=== PATIENT | female | born 1950 | race Caucasian/White ===

== ENCOUNTER 2019-08-29 10:41 | Day surgery (SDC) | payer MEDICARE, BC ==
[2019-08-27 16:00] VITALS: BMI 30.7
[~2019-08-29 10:41] MED LIST: LACTATED RINGERS 1,000 ML IV SCH
[2019-08-29 11:39] VITALS: TEMP 97.9
[2019-08-29] MEDS ORDERED: PROPOFOL 10 MG/ML 20 ML VIAL IV ONE (12:19)
--- NOTE | 2019-08-29 13:07 | P.PCN ---
Date of Procedure: 08/29/19 Procedure(s) Performed: BRIEF HISTORY: Patient is a 69-year-old pleasant male scheduled for an elective colonoscopy as a part of evaluation of positive cologuard PROCEDURE PERFORMED: Colonoscopy with snare polypectomy PREOPERATIVE DIAGNOSIS: Positive cologuard. IV sedation per Anesthesia. PROCEDURE: After informed consent was obtained, the patient, was brought into the endoscopy unit. IV sedation was administered by Anesthesia under continuous monitoring. Digital rectal examination was normal. Initially the Olympus CF-160 flexible video colonoscope was then inserted in the rectum, gradually advanced into the cecum without any difficulty. Careful examination was performed as the scope was gradually being withdrawn. Ileocecal valve and the appendiceal orifice were visualized and appeared normal. Prep was excellent. Mucosa of the cecum, appeared normal. In the ascending colon there was a 1 cm broad-based polyp removed by snare polypectomy. In the transverse colon there was a 5 mm polyp removed by snare polypectomy. Rest of the ascending colon, transverse colon, descending colon, sigmoid colon, and rectum appeared normal. Scattered sigmoid diverticulosis seen Retroflexion was performed in the rectum and no lesions were seen. The patient tolerated the procedure well. IMPRESSION: 1 cm ascending colon polyp status post polypectomy 5 mm transverse colon polyp status post polypectomy Scattered sigmoid diverticulosis RECOMMENDATIONS: Findings of this examination were discussed with the patient as well as a family. She was advised to follow with the biopsy results. If the biopsy shows an adenoma she can have a repeat colonoscopy in 3 years.
[2019-08-29 13:18] VITALS: BP 164/92; PULSE 74; RESP 20
== END 2019-08-29 13:26 | disposition home or self-care (01) ==
LOC: ORWHC2ENDO 10:41
PROVIDERS: ATTEND Internal Medicine Gastroenterology
DX: D12.2 Benign neoplasm of ascending colon (principal); D12.3 Benign neoplasm of transverse colon; K57.30 Diverticulosis of large intestine without perforation or abscess without bleeding; E78.5 Hyperlipidemia, unspecified; Z88.0 Allergy status to penicillin; Z79.899 Other long term (current) drug therapy; Z79.82 Long term (current) use of aspirin
CPT/HCPCS: 88305; 45385; J2704

== ENCOUNTER → 2020-10-29 | Outpatient (CLI) | payer MEDICARE ==
--- NOTE | 2020-10-29 11:06 | US ---
EXAMINATION TYPE: US thyroid st tissue head/neck DATE OF EXAM: 10/29/2020 COMPARISON: NONE CLINICAL HISTORY: E04.1 Thyroid Nodule. left sided nodule seen on MRI, not done here, not on thyroid meds GLAND SIZE: Right Lobe: 5.1 x 1.1 x 2.2 cm Overall Parenchyma: homogenous Left Lobe: 5.3 x 1.5 x 1.8 cm Overall Parenchyma: heterogeneous Isthmus Thickness: 0.3 cm NODULES RIGHT: # of nodules measured on right: 0 LEFT: # of nodules measured on left: 1 1. 2.2 X 1.3 x 1.6 cm solid or almost completely solid, hyperechoic nodule, which is taller than wi de, with smooth margins, without echogenic foci. Prior size: no previous ISTHMUS: # of nodules measured in the isthmus: 0 Bilateral neck scanned, no evidence of lymphadenopathy. IMPRESSION: 1. Moderately suspicious nodule. Biopsy is recommended. 2017 ACR TI-RADS LEVEL: 4 *Highest TI-RADS level nodule reported
== END | disposition home or self-care (01) ==
LOC: RADUSWWP 10:12
PROVIDERS: ATTEND Family Medicine
DX: E04.1 Nontoxic single thyroid nodule (principal)
CPT/HCPCS: 76536

== ENCOUNTER 2020-11-19 12:08 | Day surgery (SDC) | payer MEDICARE ==
[2020-11-19 12:47] VITALS: TEMP 97.7
--- NOTE | 2020-11-19 14:00 | US ---
ULTRASOUND GUIDED FNA THYROID BIOPSY: CLINICAL HISTORY: Left thyroid nodule FINDINGS: The procedure was explained to the patient. The risks, complications, benefits and alternatives were discussed and any questions were answered. Informed consent was obtained. Patient was placed supin e on the ultrasound table and prepped and draped in the usual sterile fashion. Utilizing a 25 gauge needle, five passes were made into the requested left thyroid nodule. Patient was stable throughout the procedure. Pathology is pending. All elements of maximal barrier technique were utilized. IMPRESSION: 1. Successful ultrasound guided FNA thyroid biopsy.
[2020-11-19 14:08] VITALS: BP 152/84; PULSE 85; RESP 16
== END 2020-11-19 14:00 | disposition home or self-care (01) ==
LOC: RADPROMAIN 12:08
PROVIDERS: ATTEND Family Medicine
DX: E04.1 Nontoxic single thyroid nodule (principal); C44.91 Basal cell carcinoma of skin, unspecified
CPT/HCPCS: 10005; 88173; 88305

== ENCOUNTER → 2021-10-06 | Outpatient (CLI) | payer MEDICARE ==
--- NOTE | 2021-10-07 14:28 | MM ---
Reason for exam: screening (asymptomatic). Last mammogram was performed 2 years and 4 months ago. History: Patient is postmenopausal. Benign excisional biopsy of both breasts, 1980. Physical Findings: A clinical breast exam by your physician is recommended on an annual basis and results should be correlated with mammographic findings. MG 3D Screening Mammo W/Cad Bilateral CC and MLO view(s) were taken. Prior study comparison: June 21, 2019, mammogram. There are scattered fibroglandular densities. No significant changes when compared with prior studies. ASSESSMENT: Benign, BI-RAD 2 RECOMMENDATION: Routine screening mammogram of both breasts in 1 year.
== END | disposition home or self-care (01) ==
LOC: RADMAMWWP 09:41
PROVIDERS: ATTEND Family Medicine
DX: Z12.31 Encounter for screening mammogram for malignant neoplasm of breast (principal); Z78.0 Asymptomatic menopausal state
CPT/HCPCS: 77063; 77067

== ENCOUNTER → 2023-02-02 | Outpatient (CLI) | payer MEDICARE ==
--- NOTE | 2023-02-02 17:13 | BD ---
EXAMINATION TYPE: Axial Bone Density DATE OF EXAM: 02/02/2023 CLINICAL HISTORY: 72 years old Female. ICD-10 CODE: Z78.0 MENOPAUSAL STATE Height: 63 Weight: 158 FRAX RISK QUESTIONS: History of Fracture in Adulthood: yes Secondary Osteoporosis: yes 3. Menopause before 45: yes, at 41 Current Tobacco Use: quit 1998 RISK FACTORS HISTORY OF: hx of femur fx at 58 yrs old, surgically repaired, kendra and pinning hx of broken toes, as an adult Surgery rt hip and femur, kendra and pinning at 58 yrs old Postmenopausal woman: yes, at 41 yrs old, naturally Take estrogen and/or progesterone medications: yes, in the past for about 1 yr Lost more than 2 inches in height since high school: yes Hyperparathyroidism: no Adrenal Insufficiency: no MEDICATIONS: Prednisone or other steroids: into joints only Additional Medications: bp meds, reflux meds, statin for cholesterol, vit d and calcium, nausea and d iarrhea meds, lbl meds, aspirin, Additional History: hypertension, ibs, rt femoral rodding and pinning, cholesterol, reflux, cholester ol, EXAM MEASUREMENTS: Bone mineral densitometry was performed using the [employer] System. Bone mineral density as measured about the Lumbar spine is: ----- L1-L4(G/cm2): 1.363 T Score Values are as follows: ----- L1: 1.4 ----- L2: 1.6 ----- L3: 1.1 ----- L4: 1.9 ----- L1-L4: 1.5 Z Score Values are as follows: ----- L1: 2.9 ----- L2: 3.1 ----- L3: 2.6 ----- L4: 3.4 ----- L1-L4: 3.0 Bone mineral density has: Increased 6.5% since study of: 05.14.2009 Bone mineral density about the L hip (g/cm2): 1.080 T Score values are as follows: -----L Neck: -0.8 -----L Total: 0.6 Z Score values are as follows: -----L Neck: 0.9 -----L Total: 2.1 Bone mineral density has: Increased 6.7% since study of: 05.14.2009 FRAX%s: The graph provided illustrates a 13.9% chance for a major osteoporotic fx and a 1.5% chance f or the hips probability for fx in 10 years time. IMPRESSION: Normal (Values between +1 and -1 indicate normal bone mass). Consider repeating this study in 5 year s or sooner if there is some new clinical indication. NOTE: T-SCORE=SD OF THE YOUNG ADULT MEAN.
--- NOTE | 2023-02-03 08:13 | MM ---
Reason for Exam: Screening (asymptomatic). Last mammogram was performed 1 year(s) and 4 month(s) ago. Patient History: Menarche at age 11. First Full-Term at age 18. Postmenopausal. Estrogen for 1 year from age 44 until age 45. 1981, Bilateral Benign Excisional Biopsy. Paternal grandmother had breast cancer. Risk Values: Sydni 5 year model risk: 1.5%. NCI Lifetime model risk: 3.7%. Prior Study Comparison: 06/21/2019 Screening Mammogram, Unknown. 10/06/2021 Bilateral Screening Mammogram, [facility]. Tissue Density: There are scattered fibroglandular densities. Findings: Analyzed By CAD. There is no suspicious group of microcalcifications or new suspicious mass in either breast. Benign round appearing calcifications within both breasts. Overall Assessment: Benign, BI-RAD 2 Management: Screening Mammogram of both breasts in 1 year. A clinical breast exam by your physician is recommended on an annual basis and results should be correlated with mammographic findings. Electronically signed and approved by: Candelario Alvarez D.O.
== END | disposition home or self-care (01) ==
LOC: RADMAMWWP 09:27
PROVIDERS: ATTEND Family Medicine
DX: Z12.31 Encounter for screening mammogram for malignant neoplasm of breast (principal); I10 Essential (primary) hypertension; Z78.0 Asymptomatic menopausal state; Z80.3 Family history of malignant neoplasm of breast
CPT/HCPCS: 77067; 77080

== ENCOUNTER 2023-04-08 05:22 | Observation (INO) | payer MEDICARE ==
[2023-04-08 06:08] LABS: Basophils % (A) 0 %; Eosinophils # (A) 0.1 k/uL (0-0.7); Eosinophils % (A) 1 %; HCT 44.1 % (34.0-46.0); HGB 14.6 gm/dL (11.4-16.0); Lymphocytes # (A) 1.9 k/uL (1.0-4.8); Lymphocytes % (A) 25 %; MCH 28.4 pg (25.0-35.0); MCHC 33.2 g/dL (31.0-37.0); MCV 85.4 fL (80.0-100.0); Mean Platelet Volume 8.7; Monocytes # (A) 0.4 k/uL (0-1.0); Monocytes % (A) 5 %; Neutrophils # (A) 5.2 k/uL (1.3-7.7); Neutrophils % (A) 67 %; Platelet Count 214 k/uL (150-450); RBC 5.16 m/uL (3.80-5.40); RDW 12.9 % (11.5-15.5); WBC 7.7 k/uL (3.8-10.6)
--- NOTE | 2023-04-08 06:20 | ED ---
Chest Pain HPI - General Chief Complaint: Chest Pain Stated Complaint: Chest pain Time Seen by Provider: 04/08/23 06:02 Source: patient, RN notes reviewed Mode of arrival: ambulatory Limitations: no limitations - History of Present Illness Initial Comments: Patient is a 72-year-old female presenting to the emergency room with complaints of lower centralized pressure-like chest pain that began approximately 1 hour prior to arrival with radiation through to her back. She reports that the pain has improved slightly since initially waking with the pain. She denies any associated symptoms including any shortness of breath, abdominal pain, nausea, vomiting, diaphoresis, orthopnea, headache, dizziness, fevers or chills. She does report a flare of her irritable bowel syndrome with an episode of severe cramping and nausea last night which has resolved. She denies any episodes of vomiting during her IBS flare. In addition to her irritab le bowel syndrome she has past medical history significant for GERD, hyper lipidemia, hypertension, thyroid nodule and osteoarthritis. - Related Data Home Medications Medication Instructions Recorded Confirmed Acetaminophen [Tylenol Arthritis] 650 mg PO Q4-6H 08/27/19 11/19/20 Aspirin [Adult Low Dose Aspirin EC] 162 mg PO DAILY 08/27/19 11/19/20 Cranberry Fruit Extract [Cranberry] 200 mg PO DAILY PRN 08/27/19 11/19/20 Digest Assure 1 tab PO DAILY 08/27/19 11/19/20 Hyoscyamine Sulfate [Levsin] 0.125 mg PO BID 08/27/19 11/19/20 L.acidoph,Paracasei, B.lactis 1 each PO DAILY 08/27/19 11/19/20 [Probiotic] Simvastatin [Zocor] 20 mg PO HS 08/27/19 11/19/20 amLODIPine BESYLATE 5 mg PO BID 08/27/19 11/19/20 Acetaminophen-Codeine 300-30mg 1 - 2 tab PO Q4-6H PRN 11/06/20 11/19/20 [Tylenol w/codeine #3] Cyanocobalamin [Vitamin B-12] 500 mcg PO DAILY 11/06/20 11/19/20 Non Formulary Drug 1 tab PO DAILY 11/06/20 11/19/20 Psyllium Husk (with Sugar) 1 dose PO DAILY 11/06/20 11/19/20 [Metamucil Powder] Ubidecarenone [Co Q-10] 200 mg PO DAILY 11/06/20 11/19/20 hydroCHLOROthiazide [Hydrodiuril] 25 mg PO DAILY 11/06/20 11/19/20 Naproxen 500 mg PO BID 11/19/20 11/19/20 Allergies Allergy/AdvReac Type Severity Reaction Status Date / Time Penicillins Allergy Rash/Hives Verified 04/08/23 05:26 Review of Systems ROS Statement: Those systems with pertinent positive or pertinent negative responses have been documented in the HPI. ROS Other: All systems not noted in ROS Statement are negative. Past Medical History Past Medical History: Cancer, GERD/Reflux, Hearing Disorder / Deafness, Hyperlipidemia, Hypertension, Osteoarthritis (OA) Additional Past Medical History / Comment(s): IBS. positive Cologuard, skin cancer basal cell on outside of nose, left thyroid nodule History of Any Multi-Drug Resistant Organisms: None Reported Past Surgical History: Breast Surgery, Orthopedic Surgery, Tonsillectomy Additional Past Surgical History / Comment(s): Fallopian tubes removed, bilateral breast lumpectomies for cysts, rectocele repair, broken right femur with surgery and kendra in place, colonoscopy, bilateral cataract removal, skin cancer removed from nose, fatty tumour removed from back Additional Past Anesthesia/Blood Transfusion Reaction / Comment(s): Slow to wake up a few times. Past Psychological History: No Psychological Hx Reported Smoking Status: Former smoker Past Alcohol Use History: Rare Past Drug Use History: None Reported - Past Family History Mother Family Medical History: No Reported History Father Family Medical History: Cancer Additional Family Medical History / Comment(s): Lung cancer. General Exam Limitations: no limitations General appearance: alert, in no apparent distress Head exam: Present: atraumatic, normocephalic, normal inspection Eye exam: Present: normal appearance, PERRL, EOMI. Absent: scleral icterus, conjunctival injection, periorbital swelling ENT exam: Present: normal exam, mucous membranes moist Neck exam: Present: normal inspection, full ROM Respiratory exam: Present: normal lung sounds bilaterally. Absent: respiratory distress, wheezes, rales, rhonchi, stridor, chest wall tenderness Cardiovascular Exam: Present: regular rate, normal rhythm, normal heart sounds. Absent: systolic murmur, diastolic murmur, rubs, gallop, clicks GI/Abdominal exam: Present: soft, normal bowel sounds. Absent: distended, tenderness, guarding, rebound, rigid Rectal exam: Present: deferred Extremities exam: Present: normal inspection, full ROM. Absent: pedal edema, joint swelling Back exam: Present: normal inspection Neurological exam: Present: alert, oriented X3, CN II-XII intact Psychiatric exam: Present: normal affect, normal mood Skin exam: Present: warm, dry, intact, normal color. Absent: rash Course Vital Signs 04/08/23 05:26 Temperature 98.1 F Pulse Rate 102 H Respiratory 18 Rate Blood Pressure 159/92 O2 Sat by Pulse 98 Oximetry Chest Pain MDM - MDM Was pt. sent in by a medical professional or institution (, PA, ANALYTICAL LAB ANALYST, urgent care, hospital, or retirement...) When possible be specific @ -No Did you speak to anyone other than the patient for history (EMS, parent, family, police, friend...)? What history was obtained from this source @ -No Did you review nursing and triage notes (agree or disagree)? Why? @ -I reviewed and agree with nursing and triage notes Were old charts reviewed (outside hosp., previous admission, EMS record, old EKG , old radiological studies, urgent care reports/EKG's, retirement records)? Report findings @ -No old charts were reviewed Differential Diagnosis (chest pain, altered mental status, abdominal pain women, abdominal pain men, vaginal bleeding, weakness, fever, dyspnea, syncope, headache, dizziness, GI bleed, back pain, seizure, CVA, palpatations, mental health, musculoskeletal)? @ -Differential Chest Pain: Stable Angina, Unstable Angina, STEMI, NSTEMI, Aortic Dissection, Pneumothorax, Musculoskeletal, Esophageal Spasm GERD, Cholecystitis, Pancreatitis, Zoster, this is not meant to be an all-inclusive list. EKG interpreted by me (3pts min.). @ -Sinus rhythm, ventricular rate 71 bpm, OH interval 159 ms, QRS duration 85 ms, QT/QTC 357/380 ms, PRT axes 63, 60, 65 X-rays interpreted by me (1pt min.). @ -Chest x-ray two-view: Hyperinflation. No consolidation or infiltration. No acute cardiopulmonary process. CT interpreted by me (1pt min.). @ -None done U/S interpreted by me (1pt. min.). @ -None done What testing was considered but not performed or refused? (CT, X-rays, U/S, labs)? Why? @ -None What meds were considered but not given or refused? Why? @ -Analgesics offered but declined. Did you discuss the management of the patient with other professionals (prof dubois i.e. , PA, ANALYTICAL LAB ANALYST, lab, RT, psych nurse, rn social services, grey stock recorder, teacher, uniform patrol police officer, family service caseworker)? Give summary @ -Yes, spoke with Dr. Wilson information technology analyst for [facility] regarding patient's presentation and risk factors recommending observation stay for further monitoring. She is accepting of admission and advised cardiac consult. Was smoking cessation discussed for >3mins.? @ -No Was critical care preformed (if so, how long)? @ -No Were there social determinants of health that impacted care today? How? (Homelessness, low income, unemployed, alcoholism, drug addiction, transportation, low edu. Level, literacy, decrease access to med. care, halfway, rehab)? @ -No Was there de-escalation of care discussed even if they declined (Discuss DNR or withdrawal of care, Hospice)? DNR status @ -No What co-morbidities impacted this encounter? (DM, HTN, Smoking, COPD, CAD, Cancer, CVA, ARF, Chemo, Hep., AIDS, mental health diagnosis, sleep apnea, morbid obesity)? @ -None Was patient admitted / discharged? Hospital course, mention meds given and route, prescriptions, significant lab abnormalities, going to OR and other pertinent info. @ -72-year-old presenting to the emergency room with complaints of pressure-like chest pain ongoing for approximately 1 hour prior to her arrival to the emergency room through her back. Pain has improved without intervention since initial initiation of pain. No associated symptoms. Will start workup for chest pain with EKG, CBC, CMP, coags, troponin, magnesium, amylase, lipase and chest x-ray. Will give 324 aspirin. Pain is continuing to subsided without intervention or associated symptoms. Laboratory results reveal normal CBC. Call back stable, PTT low at 20.7 CMP reveals slightly elevated BUN at 19 with normal creatinine. Glucose elevated 109. Alkaline phosphatase less than 20. Electrolytes including potassium and magnesium normal. Amylase and lipase normal. Troponin 0.017. EKG shows sinus rhythm. Chest x-ray demonstrates hyperinflation without any acute cardiopulmonary process. Findings discussed with patient and daughter at bedside. Advised due to risk factors including age, hypertension and hyperlipidemia history recommend observation for continued monitoring of chest pain and laboratory studies. Patient and daughter are agreeable to this plan. Spoke with Dr. Wilson information technology analyst for [facility] regarding patient's presentation and risk factors recommending observation stay for further monitoring. She is accepting of admission and advised cardiac consult. Will place admission orders and cardiac consult. Will admit patient in stable condition to observation unit under [facility] services for further monitoring and evaluation of chest pain. Undiagnosed new problem with uncertain prognosis? @ -No Drug Therapy requiring intensive monitoring for toxicity (Heparin, Nitro, Insulin, Cardizem)? @ -No Were any procedures done? @ -No Diagnosis/symptom? @ -Chest pain Acute, or Chronic, or Acute on Chronic? @ -Acute Uncomplicated (without systemic symptoms) or Complicated (systemic symptoms)? @ -Complicated Side effects of treatment? @ -No Exacerbation, Progression, or Severe Exacerbation? @ -No Poses a threat to life or bodily function? How? (Chest pain, USA, SC, pneumonia, PE, COPD, DKA, ARF, appy, cholecystitis, CVA, Diverticulitis, Homicidal, Suicidal, threat to staff... and all critical care pts) @ -Yes, chest pain with risk factors for ACS; will admit for observation for further evaluation and monitoring of chest pain. Case discussed with Dr. Montoya Disposition Clinical Impression: Chest pain Disposition: ADMITTED IP TO THIS [facility] Condition: Stable Instructions (If sedation given, give patient instructions): Chest Pain (ED) Referrals: Sabrina Leahy DO [Primary Care Provider] - 1-2 days Time of Disposition: 08:35
[2023-04-08] MEDS ORDERED: ASPIRIN 81 MG PO STA (06:26)
[2023-04-08 06:35] LABS: ALT 19 U/L (4-34); African American GFR (CKD) >90 (>60 ml/min/1.73 sqM); Anion Gap 8 mmol/L; Blood Urea Nitrogen 19 mg/dL (7-17); Calcium 9.2 mg/dL (8.4-10.2); Carbon Dioxide 25 mmol/L (22-30); Chloride 106 mmol/L (98-107); Glucose 109 mg/dL (74-99); Non-African American GFR(CKD) 89 (>60 ml/min/1.73 sqM); Sodium 139 mmol/L (137-145); Total Bilirubin 0.7 mg/dL (0.2-1.3)
[2023-04-08 06:40] LABS: AST 31 U/L (14-36); Albumin 4.5 g/dL (3.5-5.0); Alkaline Phosphatase <20 U/L (38-126); Potassium 4.6 mmol/L (3.5-5.1); Total Protein 7.3 g/dL (6.3-8.2)
[2023-04-08 06:48] LABS: Prothrombin Time 10.6 sec (9.0-12.0)
[2023-04-08 07:14] LABS: Partial Thromboplastin Time 20.7 sec (22.0-30.0)
--- NOTE | 2023-04-08 08:23 | XR ---
EXAMINATION TYPE: XR chest 2V DATE OF EXAM: 04/08/2023 COMPARISON: None HISTORY: 72-year-old female with chest pain TECHNIQUE: PA and lateral views FINDINGS: The cardiomediastinal silhouette, aorta, and pulmonary vasculature are within normal limits. Mild hyp erinflation. Lungs and pleural spaces are clear. IMPRESSION: Mild hyperinflation may reflect depth of inspiration or underlying emphysema. Clinically correlate. O therwise, no acute cardiopulmonary process.
[2023-04-08] MEDS ORDERED: NALOXONE 0.4 MG/ML 1 ML VIAL IV PRN (08:40)
[2023-04-08] MEDS ORDERED: ACETAMINOPHEN TAB 325 MG TAB PO PRN (08:40)
[2023-04-08] MEDS ORDERED: traMADol 50 MG TAB PO PRN (08:40)
--- NOTE | 2023-04-08 11:04 | CT ---
EXAMINATION TYPE: CT angio thor/abd pel aorta DATE OF EXAM: 04/08/2023 COMPARISON: Chest x-ray 04/08/2023 HISTORY: 72-year-old female Chest and back pain. TECHNIQUE: Contiguous axial scanning of the chest, abdomen, and pelvis performed without and with IV Contrast, patient injected with 100ml mL of Isovue 300. Coronal/sagittal reconstructions performed. 3 -D reconstructions generated on a dedicated independent workstation. CT DLP: 1442.3 mGycm Automated exposure control for dose reduction was used. FINDINGS: VASCULATURE: Initial noncontrast images show no evidence for acute intramural hematoma of the aorta. No evidence f or aortic dissection. Ectatic ascending aorta 3.8 cm. Mild atherosclerotic arch calcifications with conventional arch vesse l branching anatomy. Portable and ectatic upper descending thoracic aorta at 3.1 cm and mid descending thoracic aorta at 2 .7 cm. Ectatic at the thoracoabdominal junction and 2.8 cm. Mild atherosclerotic calcifications especially infrarenal abdominal aorta and more moderate within th e bilateral iliac arteries with segmental mild to moderate stenoses in the common iliac arteries. No evidence for thoracic aortic aneurysm or AAA. Celiac axis and SMA are patent as are the bilateral renal arteries. There is accessory left renal art erna noted. Patent MALATHI. CHEST: Heart normal size without pericardial effusion. Extensive three-vessel coronary artery calcifications are present in remarkable for coronary artery disease. No thoracic lymphadenopathy by CT size criteria. Underlying mild to moderate emphysematous change. Strandy areas of scarring or atelectasis in the low er lungs. Right apical pleural-parenchymal scarring. No consolidation or pleural effusion. ABDOMEN: Small hiatal hernia. 7 mm cyst anterior left liver lobe. Otherwise, arterial phase imaging of the liver, gallbladder, righ t adrenal gland, spleen, and pancreas show no gross abnormality. 1.2 cm cortical cyst right kidney. Small left-sided parapelvic cysts measuring up to 1.2 cm as well a s an extrarenal pelvis on the left. No dilated small bowel, free fluid, or free air. No mesenteric or retroperitoneal lymphadenopathy. Normal appendix. There is moderate stool burden. Sigmoid diverticulosis. Mildly redundant sigmoid col on. No pericolonic inflammatory change. PELVIS: Marked distention of the urinary bladder. This is mass effect pushing the uterus posteriorly. Uterus anteverted. A pessary device is in place. Tiny foci of air within the vaginal canal as well as some v ague hyperdensity as well. No abnormal fluid collection the pelvis or pelvic lymphadenopathy. Neither ovary well delineated. BONES: Previous intramedullary nailing of the proximal right femur. Facet arthropathy mid to lower lumbar sp ine with grade 1 anterolisthesis L4-L5. IMPRESSION: 1. NO EVIDENCE FOR AORTIC ANEURYSM OR AORTIC DISSECTION. THERE IS MILD ECTASIA OF THE THORACIC AORTA UP TO 3.8 CM. 2. COPD WITH MILD EMPHYSEMA. SMALL HIATAL HERNIA. SIGMOID DIVERTICULOSIS. 3. NOTE MARKED DISTENTION OF THE URINARY BLADDER. THIS HAS MASS EFFECT PUSHING THE UTERUS POSTERIORLY . CORRELATE TO EXCLUDE URINARY RETENTION. 4. A pessary device is in place. Tiny foci of air within the vaginal canal as well as some vague hype rdensity within the canal as well. Query any recent procedure or instrumentation.
[2023-04-08] MEDS ORDERED: HYOSCYAMINE SULFATE 0.125 MG TAB PO PRN (18:04)
[2023-04-08] MEDS: amLODIPine 5 MG TAB PO SCH (21:10)
[2023-04-08] MEDS: ATORVASTATIN 10 MG TAB PO SCH (21:10)
[2023-04-08] MEDS: NON FORMULARY DRUG (Mirabegron [Myrbetriq] 50 MG Tab.Er.24h) PO SCH (21:49)
[2023-04-09] MEDS: LACTOBACILLUS ACIDOPH & BULGAR 1 EACH PACKET PO SCH (09:07)
[2023-04-09] MEDS: amLODIPine 5 MG TAB PO SCH ×2 (09:07→20:41)
[2023-04-09] MEDS: HYOSCYAMINE SULFATE 0.125 MG TAB PO SCH (09:07)
[2023-04-09] MEDS: ASPIRIN 81 MG PO SCH (09:07)
--- NOTE | 2023-04-09 12:39 | P.CRDCN ---
History of Present Illness Consult date: 04/09/23 Consult reason: chest pain Chief complaint: Chest pain History of present illness: History of present illness: Patient is a pleasant 72-year-old female with significant past medical history of irritable bowel syndrome, GERD, hyperlipidemia, hypertension, thyroid nodule, and osteoarthritis who presented to the emergency department with complaints of chest pain. She denies any significant family history of heart disease. She was a former smoker however quit in 1998, she drinks one to 2 glasses of wine a week. She reports that Monday evening she had a flareup of her IBS from 9 PM until midnight and then she went to bed and she woke up around 0400 yesterday with chest pain and pressure radiating to the right shoulder. She denies any associated symptoms of shortness of breath, diaphoresis, nausea. She reports that her chest was sore all day yesterday after having an episode of chest pressure. Denies any history of chest pain. She does not follow with a sales office assistant. She does report feeling better this morning with no chest pain. Labs reviewed: Troponin negative 3, d-dimer 0.85, creatinine 0.3, LDL 86. EKG showed sinus rhythm, 71 bpm, no significant ST or T wave changes. Chest x-ray showed mild hyperinflation. CTA of the thoracic/abdomen/pelvic aorta showed no dissection or aneurysm, that showed three-vessel coronary artery calcifications. She denies any chest pain or pressure this morning and is feeling better. REVIEW OF SYSTEMS: No fever or chills. No cough or expectoration. No diaph oresis. Patient denies headache, dizziness, blurred vision, double vision. Patient denies any stomach discomfort. No nausea, vomiting. No hematochezia. No hematemesis. Denies any black stools or blood in his stools. Denies dysuria or hematuria. No muscle weakness or numbness. Reports chest pain. PHYSICAL EXAMINATION: This is a 72-year-old female in no apparent distress at the time of my examination. HEENT: Head is atraumatic, normocephalic. Pupils are equal, round. Sclerae anicteric. Conjunctivae are clear. Mucous membranes of the mouth are moist. Neck is supple. There is no jugular venous distention. No carotid bruit is heard. CHEST EXAMINATION: Lungs are clear to auscultation. No chest wall tenderness is noted on palpation or with deep breathing. HEART EXAMINATION: Heart regular rate and rhythm. S1, S2 heard. No murmurs, gallops or rub. ABDOMEN: Soft, nontender. Bowel sounds are heard. EXTREMITIES: 2+ peripheral pulses with no evidence of peripheral edema and no calf tenderness noted. NEUROLOGIC EXAMINATION: Patient is awake, alert and oriented x3. IMPRESSION AND PLAN: Chest pain Hypertension Hyperlipidemia Three-vessel coronary artery calcifications as seen on CT Irritable bowel syndrome PLAN: We will echocardiogram to evaluate heart function and structure. Given three-vessel coronary artery calcifications and recent symptoms would recommend proceeding with stress echo tomorrow 04/10. Nothing by mouth after midnight for stress testing. Continue current medications. Further recommendations pending testing. I am dictating on behalf of Dr. Carl Sanchez's history/physical and assessment/plan. Past Medical History Past Medical History: Cancer, GERD/Reflux, Hearing Disorder / Deafness, Hyperlipidemia, Hypertension, Osteoarthritis (OA) Additional Past Medical History / Comment(s): IBS. positive Cologuard, skin cancer basal cell on outside of nose, left thyroid nodule History of Any Multi-Drug Resistant Organisms: None Reported Past Surgical History: Breast Surgery, Orthopedic Surgery, Tonsillectomy Additional Past Surgical History / Comment(s): Fallopian tubes removed, bilateral breast lumpectomies for cysts, rectocele repair, broken right femur with surgery and kendra in place, colonoscopy, bilateral cataract removal, skin cancer removed from nose, fatty tumour removed from back Additional Past Anesthesia/Blood Transfusion Reaction / Comment(s): Slow to wake up a few times. Smoking Status: Former smoker - Past Family History Mother Family Medical History: No Reported History Father Family Medical History: Cancer Additional Family Medical History / Comment(s): Lung cancer. Medications and Allergies Home Medications Medication Instructions Recorded Confirmed Type Aspirin [Adult Low Dose Aspirin EC] 81 mg PO DAILY 08/27/19 04/08/23 History Hyoscyamine Sulfate [Levsin] 0.125 mg PO DAILY 08/27/19 04/08/23 History L.acidoph,Paracasei, B.lactis 1 cap PO DAILY 08/27/19 04/08/23 History [Probiotic] Simvastatin [Zocor] 20 mg PO HS 08/27/19 04/08/23 History amLODIPine BESYLATE 5 mg PO BID 08/27/19 04/08/23 History Hyoscyamine Sulfate [Levsin] 0.125 mg PO DAILY PRN 04/08/23 04/08/23 History Mirabegron [Myrbetriq] 50 mg PO HS 04/08/23 04/08/23 History Allergies Allergy/AdvReac Type Severity Reaction Status Date / Time Penicillins Allergy Rash/Hives Verified 04/08/23 11:50 Physical Exam Vitals: Vital Signs Temp Pulse Pulse Resp BP BP Pulse Ox 04/09/23 08:00 97.9 F 84 15 148/84 94 L 04/09/23 01:19 97.8 F 79 15 123/78 94 L 04/08/23 21:13 98.2 F 79 18 147/91 95 04/08/23 16:00 97.8 F 75 18 138/84 98 04/08/23 12:00 54 L 18 143/68 98 Intake and Output 04/08/23 04/09/23 04/09/23 22:59 06:59 14:59 Intake Total 540 Balance 540 Intake: Oral 540 Other: Voiding Method Toilet Toilet Weight 71.668 kg Results 04/08/23 05:46 04/08/23 05:46 Cardiac Enzymes 04/08/23 04/08/23 Range/Units 11:02 14:21 Troponin I <0.012 <0.012 (0.000-0.034) ng/mL Current Medications Generic Name Dose Route Start Last Admin Trade Name Freq PRN Reason Stop Dose Admin Acetaminophen 650 mg 04/08/23 08:40 Acetaminophen Tab 325 Mg Tab PO Q6HR PRN Mild Pain or Fever > 100.5 Amlodipine Besylate 5 mg 04/08/23 21:00 04/09/23 09:07 Amlodipine 5 Mg Tab PO 5 mg BID DANE Administration Aspirin 81 mg 04/09/23 09:00 04/09/23 09:07 Aspirin 81 Mg PO 81 mg DAILY DANE Administration Atorvastatin Calcium 10 mg 04/08/23 21:00 04/08/23 21:10 Atorvastatin 10 Mg Tab PO 10 mg HS DANE Administration Hyoscyamine 0.125 mg 04/08/23 18:04 Hyoscyamine Sulfate 0.125 Mg Tab PO DAILY PRN GI Upset Hyoscyamine 0.125 mg 04/09/23 09:00 04/09/23 09:07 Hyoscyamine Sulfate 0.125 Mg Tab PO 0.125 mg DAILY DANE Administration Lactobacillus Acidoph/Bulgaricus 1 each 04/09/23 09:00 04/09/23 09:07 Lactobacillus Acidoph & Bulgar 1 Each Packet PO 1 each DAILY DANE Administration Naloxone HCl 0.2 mg 04/08/23 08:40 Naloxone 0.4 Mg/Ml 1 Ml Vial IV Q2M PRN Opioid Reversal Non-Formulary Medication 50 mg 04/08/23 21:00 04/08/23 21:49 Mirabegron [Myrbetriq] PO Not Given HS DANE Tramadol HCl 50 mg 04/08/23 08:40 Tramadol 50 Mg Tab PO Q6H PRN Moderate Pain (Scale 4 to 6) Intake and Output 04/08/23 04/09/23 04/09/23 22:59 06:59 14:59 Intake Total 540 Balance 540 Intake: Oral 540 Other: Voiding Method Toilet Toilet Weight 71.668 kg 04/08/23 05:46 04/08/23 05:46
--- NOTE | 2023-04-09 14:35 | P.HPIM ---
History of Present Illness H&P Date: 04/08/23 Chief Complaint: Chest pain 72-year-old female presenting to the emergency room with complaints of lower centralized pressure-like chest pain that began approximately 1 hour prior to arrival with radiation through to her back. She reports that the pain has improved slightly since initially waking with the pain. She denies any associated symptoms including any shortness of breath, abdominal pain, nausea, vomiting, diaphoresis, orthopnea, headache, dizziness, fevers or chills. She does report a flare of her irritable bowel syndrome with an episode of severe cramping and nausea last night which has resolved. She denies any episodes of vomiting during her IBS flare. In addition to her irritable bowel syndrome she has past medical history significant for GERD, hyper lipidemia, hypertension, thyroid nodule and osteoarthritis. Labs reviewed: Troponin negative 3, d-dimer 0.85, creatinine 0.3, LDL 86. EKG showed sinus rhythm, 71 bpm, no significant ST or T wave changes. Chest x-ray showed mild hyperinflation. CTA of the thoracic/abdomen/pelvic aorta showed no dissection or aneurysm, that showed three-vessel coronary artery calcifications. Review of Systems REVIEW OF SYSTEMS: CONSTITUTIONAL: No fever, no malaise, no fatigue. HEENT: No recent visual problems or hearing problems. Denied any sore throat. CARDIOVASCULAR: No chest pain, orthopnea, PND, no palpitations, no syncope. PULMONARY: No shortness of breath, no cough, no hemoptysis. GASTROINTESTINAL: No diarrhea, no nausea, no vomiting, no abdominal pain. NEUROLOGICAL: No headaches, no weakness, no numbness. HEMATOLOGICAL: Denies any bleeding or petechiae. GENITOURINARY: Denies any burning micturition, frequency, or urgency. MUSCULOSKELETAL/RHEUMATOLOGICAL: Denies any joint pain, swelling, or any muscle pain. ENDOCRINE: Denies any polyuria or polydipsia. The rest of the 14-point review of systems is negative. Past Medical History Past Medical History: Cancer, GERD/Reflux, Hearing Disorder / Deafness, Hyperlipidemia, Hypertension, Osteoarthritis (OA) Additional Past Medical History / Comment(s): IBS. positive Cologuard, skin cancer basal cell on outside of nose, left thyroid nodule History of Any Multi-Drug Resistant Organisms: None Reported Past Surgical History: Breast Surgery, Orthopedic Surgery, Tonsillectomy Additional Past Surgical History / Comment(s): Fallopian tubes removed, bilateral breast lumpectomies for cysts, rectocele repair, broken right femur with surgery and kendra in place, colonoscopy, bilateral cataract removal, skin cancer removed from nose, fatty tumour removed from back Additional Past Anesthesia/Blood Transfusion Reaction / Comment(s): Slow to wake up a few times. Smoking Status: Former smoker - Past Family History Mother Family Medical History: No Reported History Father Family Medical History: Cancer Additional Family Medical History / Comment(s): Lung cancer. Medications and Allergies Home Medications Medication Instructions Recorded Confirmed Type Aspirin [Adult Low Dose Aspirin EC] 81 mg PO DAILY 08/27/19 04/08/23 History Hyoscyamine Sulfate [Levsin] 0.125 mg PO DAILY 08/27/19 04/08/23 History L.acidoph,Paracasei, B.lactis 1 cap PO DAILY 08/27/19 04/08/23 History [Probiotic] Simvastatin [Zocor] 20 mg PO HS 08/27/19 04/08/23 History amLODIPine BESYLATE 5 mg PO BID 08/27/19 04/08/23 History Hyoscyamine Sulfate [Levsin] 0.125 mg PO DAILY PRN 04/08/23 04/08/23 History Mirabegron [Myrbetriq] 50 mg PO HS 04/08/23 04/08/23 History Allergies Allergy/AdvReac Type Severity Reaction Status Date / Time Penicillins Allergy Rash/Hives Verified 04/08/23 11:50 Physical Exam Vitals: Vital Signs Temp Pulse Pulse Resp BP BP Pulse Ox 04/09/23 08:00 97.9 F 84 15 148/84 94 L 04/09/23 01:19 97.8 F 79 15 123/78 94 L 04/08/23 21:13 98.2 F 79 18 147/91 95 04/08/23 16:00 97.8 F 75 18 138/84 98 04/08/23 12:00 54 L 18 143/68 98 Intake and Output 04/08/23 04/09/23 04/09/23 22:59 06:59 14:59 Intake Total 540 Balance 540 Intake: Oral 540 Other: Voiding Method Toilet Toilet Weight 71.668 kg PHYSICAL EXAMINATION: GENERAL: The patient is alert and oriented x3, not in any acute distress. Well developed, well nourished. HEENT: Pupils are round and equally reacting to light. EOMI. No scleral icterus. No conjunctival pallor. Normocephalic, atraumatic. No pharyngeal erythema. No thyromegaly. CARDIOVASCULAR: S1 and S2 present. No murmurs, rubs, or gallops. PULMONARY: Chest is clear to auscultation, no wheezing or crackles. ABDOMEN: Soft, nontender, nondistended, normoactive bowel sounds. No palpable organomegaly. MUSCULOSKELETAL: No joint swelling or deformity. EXTREMITIES: No cyanosis, clubbing, or pedal edema. NEUROLOGICAL: Gross neurological examination did not reveal any focal deficits. SKIN: No rashes. Results CBC & Chem 7: 04/08/23 05:46 04/08/23 05:46 Thrombosis Risk Factor Assmnt - Choose All That Apply Any of the Below Risk Factors Present?: Yes Each Factor Represents 1 point: Obesity (BMI >25) Other Risk Factors: Yes Each Risk Factor Represents 2 Points: Age 61-74 years Other congenital or acquired thrombophilia - If yes, enter type in comment: No Thrombosis Risk Factor Assessment Total Risk Factor Score: 3 Thrombosis Risk Factor Assessment Level: Moderate Risk Assessment and Plan Assessment: 1. Chest pain rule out acute coronary syndrome - We will monitor EKG and trend troponin; patient does have history of three- vessel artery calcification - Recommend 2-D echo - Cardiology is consulted 2. Elevated d-dimer; is elevated at 0.85; CTA of the thoracic/abdomen/pelvic aorta showed no dissection or aneurysm, that showed three-vessel coronary artery calcifications. 3. Mild AK I; BUN is slightly elevated at 19; start on slightly improved hydration and monitor renal function left lites closely; avoid nephrotoxins and hypotension 4. Hypertension; Norvasc 5 mg twice a day 5. Hyperlipidemia; Zocor 20 mg daily at bedtime 4. Irritable bowel syndrome; continue with Levsin 0.125 mg daily; probiotics 5. Coronary artery calcification; seen on recent CTA DVT prophylaxis- SCDs CODE STATUS; full code
[2023-04-09] MEDS: ATORVASTATIN 10 MG TAB PO SCH (20:41)
[2023-04-09] MEDS: NON FORMULARY DRUG (Mirabegron [Myrbetriq] 50 MG Tab.Er.24h) PO SCH (21:22)
[2023-04-10] MEDS: amLODIPine 5 MG TAB PO SCH (08:36)
[2023-04-10] MEDS: ASPIRIN 81 MG PO SCH (08:36)
[2023-04-10] MEDS: LACTOBACILLUS ACIDOPH & BULGAR 1 EACH PACKET PO SCH (08:37)
[2023-04-10] MEDS: HYOSCYAMINE SULFATE 0.125 MG TAB PO SCH (08:47)
[2023-04-10 08:49] LABS: African American GFR (CKD) >90 (>60 ml/min/1.73 sqM); Anion Gap 6 mmol/L; Blood Urea Nitrogen 16 mg/dL (7-17); Carbon Dioxide 28 mmol/L (22-30); Chloride 105 mmol/L (98-107); Glucose 90 mg/dL (74-99); Non-African American GFR(CKD) 81 (>60 ml/min/1.73 sqM); Potassium 4.2 mmol/L (3.5-5.1); Sodium 139 mmol/L (137-145)
--- NOTE | 2023-04-10 11:37 | CA ---
Stress Echo Report Ml Howard Age: 72 Gender: F : 1950 Exam Date: 04/10/2023 10:11 Exam Location: [facility] Ht (in): 65 Wt (lb): 158 Ordering Physician: Dary Wilson MD Referring Physician: KADEN, Technical Mgr: GELACIO, Technologist Procedure CPT: Indication: Chest Pain ICD-9 Codes: Rhythm: Patient History: Chest pain Cardiac Medications: Medications in past 24 hours: Contrast: Stress Results Protocol: Vazquez Total dose(mL): Exercise Duration (min:sec): 6:[address] Depression (mm): Angina Score: Kothari Score: METS: 7.9 Resting HR: 127 Resting BP: 132 / 65 Peak HR: 156 Peak BP: 178 / 86 Max Predicted HR: 147 106 % Max Predicted HR Target HR: 125 Double Product: [id number] Stress Summary: BP Response: Normal Reason for Termination: MAX EXERTION/TARGET HR Cardiac Symptoms: NO SYMPTOMS ECG Analysis Resting ECG: Normal sinus rhythm Stress ECG: No abnormal ST/T wave changes with exercise Arrhythmia: Occasional PVCs Echo Analysis Resting Echo: Normal resting echocardiogram. Peak Echo Analysis: No wall motion changes with stress. MEASUREMENTS (Male/Female) Normal Values CONCLUSIONS No ECG evidence of ischemia with exercise. Normal treadmill stress echocardiogram. Dr. Agueda Williamson MD (Electronically Signed) Final Date: 10 April 2023 11:37
[2023-04-10 12:21] VITALS: BP 136/92; PULSE 83; RESP 14; TEMP 98
--- NOTE | 2023-04-10 13:03 | P.PN ---
Subjective Progress Note Date: 04/10/23 HISTORY OF PRESENT ILLNESS: Patient is a pleasant 72-year-old female with significant past medical history of irritable bowel syndrome, GERD, hyperlipidemia, hypertension, thyroid nodule, and osteoarthritis who presented to the emergency department with complaints of chest pain. She denies any significant family history of heart disease. She was a former smoker however quit in 1998, she drinks one to 2 glasses of wine a week. She reports that Monday evening she had a flareup of her IBS from 9 PM until midnight and then she went to bed and she woke up around 0400 yesterday with chest pain and pressure radiating to the right shoulder. She denies any associated symptoms of shortness of breath, diaphoresis, nausea. She reports that her chest was sore all day yesterday after having an episode of chest pressure. Denies any history of chest pain. She does not follow with a torch straightener. She does report feeling better this morning with no chest pain. Labs reviewed: Troponin negative 3, d-dimer 0.85, creatinine 0.3, LDL 86. EKG showed sinus rhythm, 71 bpm, no significant ST or T wave changes. Chest x-ray showed mild hyperinflation. CTA of the thoracic/abdomen/pelvic aorta showed no dissection or aneurysm, that showed three-vessel coronary artery calcifications. She denies any chest pain or pressure this morning and is feeling better. 04/10/2023 Patient examined this morning at the bedside. Patient denies chest pain or pressure. She denies shortness of breath. Patient underwent stress echo criteria [place] today which was negative for ischemia. PHYSICAL EXAM: VITAL SIGNS: Reviewed. GENERAL: Well-developed in no acute distress. NECK: Supple. No JVD or thyromegaly LUNGS: Respirations even and unlabored. Lungs essentially clear to auscultation bilaterally. HEART: Regular rate and rhythm. S1 and S2 heard. EXTREMITIES: Normal range of motion. No clubbing or cyanosis. Peripheral pulses intact. No lower extremity edema ASSESSMENT: Chest pain, status post stress echocardiogram which was negative for ischemia Hypertension Hyperlipidemia Three-vessel coronary artery calcifications as seen on CT Irritable bowel syndrome PLAN: Patient stress echo was negative for ischemia Patient may be discharged home today from a cardiac standpoint Nurse practitioner note has been reviewed by physician. Signing provider agrees with the documented findings, assessment, and plan of care. Objective - Vital Signs Vital signs: Vital Signs Temp 98 F 04/10/23 12:20 Pulse 83 04/10/23 12:20 Resp 14 04/10/23 12:20 BP 136/92 04/10/23 12:20 Pulse Ox 96 04/09/23 13:03 FiO2 Intake & Output 04/09/23 04/10/23 04/10/23 18:59 06:59 18:59 Intake Total 1260 Balance 1260 Intake: Oral 1260 Other: Voiding Method Toilet Toilet Toilet # Voids 3 2 - Labs CBC & Chem 7: 04/08/23 05:46 04/10/23 07:43
--- NOTE | 2023-04-10 13:15 | CA ---
Transthoracic Echo Report Name: Ml Howard Age: 72 Gender: F : 1950 Exam Date: 04/10/2023 08:34 Exam Location: [facility] Ht (in): 65 Wt (lb): 158 Ordering Physician: Juana Santoro Attending/Referring Phys: Vehicle Upholsterer Procedure CPT: Indications: Chest Pain Cardiac Hx: Technical Quality: Good Contrast 1: Total Dose (mL): Contrast 2: Total Dose (mL): MEASUREMENTS (Male / Female) Normal Values 2D ECHO LV Diastolic Diameter PLAX 4.0 cm 4.2 - 5.9 / 3.9 - 5.3 cm LV Systolic Diameter PLAX 2.6 cm IVS Diastolic Thickness 0.8 cm 0.6 - 1.0 / 0.6 - 0.9 cm LVPW Diastolic Thickness 0.8 cm 0.6 - 1.0 / 0.6 - 0.9 cm LV Relative Wall Thickness 0.4 RV Internal Dim ED PLAX 3.2 cm LVOT Diameter 1.8 cm Aortic Root Diameter 3.0 cm LA Systolic Diameter LX 2.2 cm 3.0 - 4.0 / 2.7 - 3.8 cm LV Diastolic Volume MOD BP 43.7 cm??? 67 - 155 / 56 - 104 cm??? LV Systolic Volume MOD BP 18.9 cm??? 22 - 58 / 19 - 49 cm??? LV Ejection Fraction MOD BP 56.7 % >= 55 % LV Diastolic Volume MOD 4C 52.0 cm??? LV Systolic Volume MOD 4C 19.6 cm??? LV Ejection Fraction MOD 4C 62.3 % LV Diastolic Length 4C 6.1 cm LV Systolic Length 4C 5.2 cm LV Diastolic Volume MOD 2C 36.0 cm??? LV Systolic Volume MOD 2C 17.7 cm??? LV Ejection Fraction MOD 2C 50.9 % LV Diastolic Length 2C 5.9 cm LV Systolic Length 2C 5.0 cm LA Volume 37.7 cm??? 18 - 58 / 22 - 52 cm??? DOPPLER AV Peak Velocity 134.1 cm/s AV Peak Gradient 7.2 mmHg AI Peak Velocity 419.8 cm/s AI Peak Gradient 70.5 mmHg AI Pressure Half Time 820.8 ms LVOT Peak Velocity 111.0 cm/s LVOT Peak Gradient 4.9 mmHg AV Area Cont Eq pk 2.0 cm??? MV Peak Velocity 120.5 cm/s MV Peak Gradient 5.8 mmHg MV Mean Velocity 48.6 cm/s MV Mean Gradient 1.3 mmHg MV Velocity Time Integral 40.0 cm MR Peak Velocity 314.3 cm/s MR Peak Gradient 39.5 mmHg Mitral E Point Velocity 60.5 cm/s Mitral A Point Velocity 102.6 cm/s Mitral E to A Ratio 0.6 MV Deceleration Time 388.2 ms MV E' Velocity 5.8 cm/s Mitral E to MV E' Ratio 10.4 TR Peak Velocity 219.4 cm/s TR Peak Gradient 19.2 mmHg Right Ventricular Systolic Press 24.4 mmHg FINDINGS Left Ventricle Normal left ventricular systolic function with no obvious regional wall motion abnormalities. Left ventricular cavity size normal. Left ventricular ejection fraction is estimated at 55-60 %. Right Ventricle Normal right ventricular size. Right Atrium Normal right atrial size. Left Atrium Normal left atrial size. Mitral Valve Mitral annulus calcification. Mild mitral regurgitation Aortic Valve Trileaflet aortic valve. Mild AI.aortic valve sclerosis. Tricuspid Valve Structurally normal tricuspid valve. Mild TR. Pulmonic Valve Pulmonic valve not well visualized. No pulmonic regurgitation. Pericardium Normal pericardium. Aorta Normal size aortic root and proximal ascending aorta. CONCLUSIONS 1. Normal size and systolic function 2. Mild mitral, aortic and tricuspid regurgitation Previewed by: Dr. Agueda Williamson MD (Electronically Signed) Final Date: 10 April 2023 13:14
--- NOTE | 2023-04-10 14:56 | P.DS ---
Providers Date of admission: 04/08/23 11:00 Attending physician: Dary Wilson MD Consults: 04/08/23 08:40 Consult Physician Stat Consulting Provider: Margarito Brunson Consult Reason/Comments: chest pain Do you want consulting provider notified?: Yes Primary care physician: Sabrina Leahy Hospital Course: Final Diagnosis Right sided chest pressure, ACS ruled out, stress-test negative for reversible ischemia. Elevated D-Dimer, CTA shows three-vessel coronary artery calcifications Mild TONY, resolved Hypertension Hyperlipidemia, history of Irritable bowel syndrome with recent flare up Full Code Discharge Disposition Patient is stable for discharge home. Recommend to continue same cardiac medications. Follow up with PCP Dr. Leahy in the office in 1 to 2 days, patient to see Dr. Sanchez in 1-2 weeks in the office as well. Recommend trial of protonix twice a day for 2 weeks and monitor symptoms. Hospital Course This is a 72 year old female with history of hypertension, hyperlipidemia, irritable bowel syndrome, GERD, left thyroid nodule, former smoker. Presents to the hospital with complaints of chest pressure. Patient recently had a flare of IBS and subsequently had pressure radiating to the right shoulder. Patient denies this as "Chest pain" questions if it could have been related to the IBS flare up. Patient denies shortness of breath, no dizziness or lightheaded, no fever or chills, and no associated diaphoresis. Patient had a CTA of the thoracic/abdomen/pelvic aorta done showing no dissection or aneurysm there is evidence of three-vessel coronary artery calcifications. Patient was admitted to the hospital and evaluated by cardiology. Underwent treadmill stress echocardiogram which was negative for reversible ischemia. EF of 55-60%, mild MR, TR, and AR. Chest xray shows mild hyperinflation, may reflect depth of inspiration vs. underlying emphysema. Otherwise no acute cardiopulmonary disease. Cardiology recommending close follow up. Patient is currently denying any chest pain and chest pressure has resolved. No shortness of breath, no nausea/vomiting or diarrhea. No abdominal pain. Alert x 3 and focal neurological exam is negative. Patient will be discharged home on trial of protonix. BUN/CR have normalized with hydration. Troponin level is negative x 3, CBC is unremarkable. Lungs are clear, S1 S2 auscultated. Patient is hemodynamically stable and will be discharged home. Please see mediation reconciliation for a list of current medication. Thank you for allowing us to participate in the care of this patient. The impression and plan of care has been dictated by Robyn Guerin, Nurse Practitioner as directed. Dr. Behzad MD I have performed a history and physical examination and medical decision making of this patient, discussed the same with the dictator, and agree with the dictators assessment and plan as written, documented as a scribe. Based on total visit time, I have performed more than 50% of this visit. Patient Condition at Discharge: Stable Plan - Discharge Summary Discharge Rx Participant: Yes New Discharge Prescriptions: New Pantoprazole [Protonix] 40 mg PO BID 14 Days #28 tab Continue amLODIPine BESYLATE 5 mg PO BID Simvastatin [Zocor] 20 mg PO HS L.acidoph,Paracasei, B.lactis [Probiotic] 1 cap PO DAILY Hyoscyamine Sulfate [Levsin] 0.125 mg PO DAILY Aspirin [Adult Low Dose Aspirin EC] 81 mg PO DAILY Mirabegron [Myrbetriq] 50 mg PO HS Hyoscyamine Sulfate [Levsin] 0.125 mg PO DAILY PRN PRN Reason: Gi Upset Discharge Medication List Aspirin [Adult Low Dose Aspirin EC] 81 mg PO DAILY 08/27/19 [History] Hyoscyamine Sulfate [Levsin] 0.125 mg PO DAILY 08/27/19 [History] L.acidoph,Paracasei, B.lactis [Probiotic] 1 cap PO DAILY 08/27/19 [History] Simvastatin [Zocor] 20 mg PO HS 08/27/19 [History] amLODIPine BESYLATE 5 mg PO BID 08/27/19 [History] Hyoscyamine Sulfate [Levsin] 0.125 mg PO DAILY PRN 04/08/23 [History] Mirabegron [Myrbetriq] 50 mg PO HS 04/08/23 [History] Pantoprazole [Protonix] 40 mg PO BID 14 Days #28 tab 04/10/23 [Rx] Follow up Appointment(s)/Referral(s): Agueda Williamson MD [STAFF PHYSICIAN] - 1 Week Sabrina Leahy DO [Primary Care Provider] - 1-2 days Patient Instructions/Handouts: Chest Pain (ED), Gastritis (DC) Discharge Disposition: HOME SELF-CARE
--- NOTE | 2023-04-11 14:41 | CDI ---
Documentation Clarification Form Date: 04/11/2023 02:12:22 PM From: Bea Burnett Admit Date: 04/08/2023 11:00:00 AM Patient Name: Ml Howard Visit Number: [id number] Discharge Date: 04/10/2023 04:19:00 PM ATTENTION: The Clinical Documentation Specialists (CDI) and [facility] Coding Staff appreciate your assistance in clarifying documentation. Please respond to the clarification below the line at the bottom and electronically sign. The CDI & [facility] Coding staff will review the response and follow-up if needed. Please note: Queries are made part of the Legal Health Record. If you have any questions, please contact the author of this message via ITS. Dr. Nima Wen The patients principal diagnosis the diagnosis that was chiefly responsible for the admission - has not been clearly identified and clarification is requested. The patient presented with complaints of chest pressure. She recently had a flair up of her IBS and subsequently had pressure radiating to the right shoulder. Per the discharge summary 04/10/23 patient denies this as chest pain question if it could have been related to the IBS flare up. History/Risk factors: patient has a history of HTN, HLD, IBS, GERD, left thyroid nodule, and is a former smoker. Clinical Indicators: chest pressure, stress test negative for reversible ischemia. Elevated d-dimer- CTA shows three-vessel coronary artery calcifications/ Mild MR, TR, and AR. Lab findings: APTT: 20.7, D-dimer 0.85, BUN 19, Glucose 109 Radiology findings: chest x-ray: mild hyperinflation may reflect depth of inspiration or underlying emphysema. No acute cardiopulmonary process. Thoracic Aorta CT: no evidence for aortic aneurysm or aortic dissection, mild ectasia of the thoracic aorta. COPD with mild emphysema, small hiatal hernia, sigmoid diverticulosis Stress test: normal size and systolic function, mild MR, AR, and TR. No ECG evidence of ischemia with exercise, normal treadmill stress echo. Vital Signs: T 98.1 Pulse 102, Resp 18, BP 159/92 O2 98 on room air Treatment: stress test, monitor EGK, trend troponin, improved hydration, monitor renal function, Norvasc, continue Levsin, probiotics, discharged home on a trial of protonix Consults: cardiology In your professional opinion, can you please clarify which diagnosis, after study, was the reason chiefly responsible for the admission? [ x ] Atypical Chest Pain [ ] Chest pain related to three-vessel coronary artery calcification [ ] IBS with recent flair up [ ] Emphysema [ ] Other, please specify [ ] Unable to determine No need for query MTDD
== END 2023-04-10 16:19 | disposition home or self-care (01) ==
LOC: EC 05:22 → INTOOBSV 11:00 → 3SCARD 11:00 → UNDODISIN 04-10 16:19
PROVIDERS: ADMIT Internal Medicine; ATTEND Internal Medicine
DX: R07.89 Other chest pain (principal); N17.9 Acute kidney failure, unspecified; R77.8 Other specified abnormalities of plasma proteins; I08.3 Combined rheumatic disorders of mitral, aortic and tricuspid valves; K58.9 Irritable bowel syndrome, unspecified; K21.9 Gastro-esophageal reflux disease without esophagitis; E78.5 Hyperlipidemia, unspecified; I10 Essential (primary) hypertension; I25.10 Atherosclerotic heart disease of native coronary artery without angina pectoris; Z85.828 Personal history of other malignant neoplasm of skin; Z87.891 Personal history of nicotine dependence; Z79.82 Long term (current) use of aspirin; Z79.899 Other long term (current) drug therapy; Z88.0 Allergy status to penicillin
CPT/HCPCS: 99285; 36415; 93005; 93306; 93351; 85379; 80053; 80048; 82150; 83690; 83735; 84484; 85025; 85610; 85730; 71046; 71275; 74174; G0378 ×3; Q9967

== ENCOUNTER → 2024-07-31 | Outpatient (CLI) | payer MEDICARE ==
--- NOTE | 2024-08-01 14:19 | MM ---
Reason for Exam: Screening (asymptomatic). Last mammogram was performed 1 year(s) and 6 month(s) ago. Patient History: Menarche at age 11. First Full-Term at age 18. Left ovary removed at age 72. Right ovary removed at age 72. Hysterectomy at age 72. Postmenopausal. Estrogen for 1 year from age 44 until age 45. 1981, Bilateral Benign Excisional Biopsy. Paternal grandmother had breast cancer, age 40. Risk Values: Sydni 5 year model risk: 1.5%. NCI Lifetime model risk: 3.5%. Prior Study Comparison: 06/21/2019 Screening Mammogram, Unknown. 10/06/2021 Bilateral Screening Mammogram, [facility]. 02/02/2023 Bilateral MG screening mammo w CAD, [facility]. Tissue Density: There are scattered areas of fibroglandular density. Findings: Analyzed By CAD. Right breast: There is no suspicious group of microcalcifications or new suspicious mass. Left breast: There is no suspicious group of microcalcifications or new suspicious mass. Overall Assessment: Negative, BI-RAD 1 Management: Screening Mammogram of both breasts in [address] [facility] will attempt to contact patient to return for supplemental views and ultrasound if indicated. Patient should continue monthly self-breast exams. A clinical breast exam by your physician is recommended on an annual basis. This exam should not preclude additional follow-up of suspicious palpable abnormalities. Note on Sydni scores and lifetime risk: 1. A Sydni score greater than 3% is considered moderate risk. If this is the case, consider specialist referral to assess eligibility for a risk reducing agent. 2. If overall lifetime risk for the development of breast cancer is 20% or higher, the patient may qualify for future screening with alternating mammogram and breast MRI. [facility], , 08/01/2024 2:15 PM. Electronically signed and approved by: Louis Owens DO
== END | disposition home or self-care (01) ==
LOC: RADMAMWWP 08:57
PROVIDERS: ATTEND Family Medicine
DX: Z12.31 Encounter for screening mammogram for malignant neoplasm of breast
CPT/HCPCS: 77063; 77067

== ENCOUNTER 2025-04-22 07:54 | Day surgery (SDC) | payer MEDICARE ==
[2025-04-18 14:54] VITALS: BMI 27.1
[~2025-04-22 07:54] MED LIST changes: -LACTATED RINGERS 1,000 ML IV SCH; +LIDOCAINE 1% (10MG/ML) FOR IV START INTRADERMA PRN
[2025-04-22] MEDS: LACTATED RINGERS 1,000 ML IV SCH (08:21)
[2025-04-22] MEDS: IV FLUID CONTINUATION 1,000 ML IV ONE (08:22)
[2025-04-22 08:26] VITALS: TEMP 98
[2025-04-22] MEDS ORDERED: PROPOFOL 10 MG/ML 20 ML VIAL IV ONE (08:56)
--- NOTE | 2025-04-22 09:14 | P.PCN ---
Date of Procedure: 04/22/25 Procedure(s) Performed: BRIEF HISTORY: Patient is a 74-year-old pleasant white female scheduled for an elective colonoscopy as a part of screening for prior history of colon polyps. Last colonoscopy was 5 years ago and was noted to have a tubular adenoma. PROCEDURE PERFORMED: Colonoscopy with snare polypectomy. PREOPERATIVE DIAGNOSIS: Screening for history of colon polyps.. IV sedation per Anesthesia. PROCEDURE: After informed consent was obtained, the patient, was brought into the endoscopy unit. IV sedation was administered by Anesthesia under continuous monitoring. Digital rectal examination was normal. Initially the Olympus CF-160 flexible video colonoscope was then inserted in the rectum, gradually advanced into the cecum without any difficulty. Careful examination was performed as the scope was gradually being withdrawn. Ileocecal valve and the appendiceal orifice were visualized and appeared normal. Prep was excellent. Mucosa of the cecum, had a 1 cm broad-based polyp removed by hot snare polypectomy. Rest of the ascending colon, transverse colon, appeared normal. The descending colon there was a 5 mm polyp removed by cold snare polypectomy. Rest of the descending colon, sigmoid colon, and rectum appeared normal. Scattered sigmoid diverticulosis. Retroflexion was performed in the rectum and no lesions were seen. The patient tolerated the procedure well. IMPRESSION: 1 cm broad-based cecal polyp status post hot snare polypectomy 5 mm descending colon polyp status post cold snare polypectomy Scattered sigmoid diverticulosis. RECOMMENDATIONS: Findings of this examination were discussed with the patient as well as family. She was advised to follow-up with the biopsy results. If the biopsy is adenoma she can have a repeat colonoscopy in 3 years..
[2025-04-22 09:29] VITALS: RESP 16
[2025-04-22 09:34] VITALS: BP 141/83; PULSE 74
== END 2025-04-22 09:51 | disposition home or self-care (01) ==
LOC: ORWHC2ENDO 07:54
PROVIDERS: ATTEND Internal Medicine Gastroenterology
DX: Z12.11 Encounter for screening for malignant neoplasm of colon (principal); D12.0 Benign neoplasm of cecum; K63.5 Polyp of colon; K57.30 Diverticulosis of large intestine without perforation or abscess without bleeding; I10 Essential (primary) hypertension; E78.5 Hyperlipidemia, unspecified; K21.9 Gastro-esophageal reflux disease without esophagitis; Z79.899 Other long term (current) drug therapy; Z87.891 Personal history of nicotine dependence; Z86.0101 Personal history of adenomatous and serrated colon polyps; Z88.0 Allergy status to penicillin
CPT/HCPCS: 88305; 45385; J2704